=== PATIENT | female | born 1955 | race Caucasian/White ===

== ENCOUNTER 2018-04-20 10:07 | Emergency (ER) | payer BC ==
[~2018-04-20] VITALS: Ht 172.7 cm; Wt 49.1 kg
[2018-04-20 11:39] LABS: HEMOGLOBIN 15.5 g/dl (12.0-16.0); IMMATURE GRANULOCYTES 0.3 % (0.0-5.0); MEAN CELL VOLUME 91.1 fL CALC (80.0-100.0); MEAN CORPUSCULAR HGB 30.7 pG CALC (26.0-32.0); MEAN CORPUSCULAR HGB CONC 33.7 g/L CALC (32.0-36.0); NEUT# 8.55 thou/uL (2.00-7.15); RED BLOOD COUNT 5.05 mill/uL (4.20-5.60)
[2018-04-20] MEDS ORDERED: ONDANSETRON HCL4 MG PO (11:39)
[2018-04-20] MEDS ORDERED: CYCLOBENZAPR5 MG PO (11:40)
[2018-04-20] MEDS ORDERED: ALLERGY NA50 MCG/ACT NAB (11:41)
[2018-04-20] MEDS ORDERED: AZELASTINE0.1 % NAB (11:42)
[2018-04-20] MEDS ORDERED: IPRATROPIUM BR0.03 % NAB (11:43)
[2018-04-20 12:07] LABS: ALBUMIN 4.4 g/dL (3.2-5.0); ALKALINE PHOSPHATASE 147 u/l (38-126); ANION GAP 17 (6-22 (CALC)); BILIRUBIN, TOTAL 0.8 mg/dL (0.0-1.4); BUN 18 mg/dL (8-23); BUN/CREATININE RATIO 26 (12-20 (CALC)); CARBON DIOXIDE 23 mmol/l (22-30); CHLORIDE 103 mmol/l (95-108); CREATININE 0.7 mg/dL (0.5-1.0); GFR > 60 ML/MIN (>=60 (CALC)); GFR FOR AFR.AMER. > 60 ML/MIN (>=60 (CALC)); LIPASE 52 u/l (23-300); POTASSIUM 4.4 mmol/l (3.5-5.1); SGOT/AST 21 u/l (9-36); SODIUM 139 mmol/l (137-146); TOTAL PROTEIN 7.4 g/dL (6.3-8.2)
[2018-04-20] MEDS ORDERED: ONDANSETRON4 MG PO (14:01)
[2018-04-20] MEDS ORDERED: UCERIS9 MG PO (14:01)
[2018-04-20] MEDS ORDERED: MEDDOSEPAK PO (14:01)
[2018-04-20] MEDS ORDERED: BENTYL10 MG PO (14:01)
[2018-04-20] MEDS ORDERED: LISINOPRIL20 MG PO (14:06)
[2018-04-20 14:34] VITALS: BP 177/88
== END 2018-04-20 14:34 | disposition home or self-care (01) | DRG 392 ==
LOC: ED 10:07
PROVIDERS: Emergency Medicine
DX: K52.9 Noninfective gastroenteritis and colitis, unspecified (principal); K50.90 Crohn's disease, unspecified, without complications; I10 Essential (primary) hypertension

== ENCOUNTER 2018-04-21 22:01 | Emergency (ER) | payer BC ==
[~2018-04-21] VITALS: Ht 172.7 cm; Wt 49.0 kg
[~2018-04-21 22:01] MED LIST: ALLERGY NA50 MCG/ACT NAB; AZELASTINE0.1 % NAB; BENTYL10 MG PO; CYCLOBENZAPR5 MG PO; IPRATROPIUM BR0.03 % NAB; LISINOPRIL20 MG PO; MEDDOSEPAK PO; ONDANSETRON HCL4 MG PO; ONDANSETRON4 MG PO; UCERIS9 MG PO
[2018-04-21 22:49] LABS: HEMOGLOBIN 13.6 g/dl (12.0-16.0); IMMATURE GRANULOCYTES 0.5 % (0.0-5.0); MEAN CELL VOLUME 90.7 fL CALC (80.0-100.0); MEAN CORPUSCULAR HGB CONC 34.2 g/L CALC (32.0-36.0); NEUT# 8.9 thou/uL (2.00-7.15); RED BLOOD COUNT 4.39 mill/uL (4.20-5.60); RED CELL DISTRI WIDTH 12.9 % (11.5-15.5)
[2018-04-21 22:50] LABS: HEMATOCRIT 39.8 % (37.0-47.0)
[2018-04-21 23:40] LABS: ALBUMIN 3.8 g/dL (3.2-5.0); ALKALINE PHOSPHATASE 125 u/l (38-126); ANION GAP 12 (6-22 (CALC)); BILIRUBIN, TOTAL 0.5 mg/dL (0.0-1.4); BUN 15 mg/dL (8-23); BUN/CREATININE RATIO 22 (12-20 (CALC)); CARBON DIOXIDE 24 mmol/l (22-30); CHLORIDE 105 mmol/l (95-108); CREATININE 0.7 mg/dL (0.5-1.0); GFR > 60 ML/MIN (>=60 (CALC)); GFR FOR AFR.AMER. > 60 ML/MIN (>=60 (CALC)); POTASSIUM 3.8 mmol/l (3.5-5.1); SGOT/AST 21 u/l (9-36); SODIUM 138 mmol/l (137-146); TOTAL PROTEIN 6.5 g/dL (6.3-8.2)
[2018-04-22] MEDS ORDERED: PREDNISONE50 MG PO (01:34)
[2018-04-22] MEDS ORDERED: PHENERGAN25 MG RE (01:34)
[2018-04-22] MEDS ORDERED: TRAMADOL HCL50 MG PO (01:34)
[2018-04-22 01:43] VITALS: BP 169/84
== END 2018-04-22 01:43 | disposition home or self-care (01) | DRG 387 ==
LOC: ED 22:01
PROVIDERS: Family Medicine
DX: K50.10 Crohn's disease of large intestine without complications (principal); Z91.11 Patient's noncompliance with dietary regimen

== ENCOUNTER 2020-05-07 16:43 | Observation (INO) | payer MEDICARE ==
[~2020-05-07] VITALS: Ht 172.7 cm; Wt 46.3 kg
[~2020-05-07 16:43] MED LIST changes: +PHENERGAN25 MG RE; +PREDNISONE50 MG PO; +TRAMADOL HCL50 MG PO
--- NOTE | 2020-05-07 16:50 | NUR ---
PT TO ROOM # 10 WITH STEADY GAIT FOR BEDSIDE TRIAGE. REFUSED TRIAGE
[2020-05-07 17:33] LABS: HEMOGLOBIN 14.8 g/dl (12.0-16.0); IMMATURE GRANULOCYTES 0.3 % (0.0-5.0); MEAN CELL VOLUME 93.4 fL CALC (80.0-100.0); MEAN CORPUSCULAR HGB 30.7 pG CALC (26.0-32.0); MEAN CORPUSCULAR HGB CONC 32.9 g/dL CAL (32.0-36.0); NEUT# 5.28 thou/uL (2.00-7.15); RED BLOOD COUNT 4.82 mill/uL (4.20-5.60); RED CELL DISTRI WIDTH 12.6 % (11.5-15.5)
[2020-05-07 17:54] LABS: ALBUMIN 4.4 g/dL (3.2-5.0); ALKALINE PHOSPHATASE 122 u/l (38-126); ANION GAP 12 (6-22 (CALC)); BILIRUBIN, TOTAL 0.4 mg/dL (0.0-1.4); BUN 10 mg/dL (8-23); BUN/CREATININE RATIO 12 (12-20 (CALC)); CARBON DIOXIDE 25 mmol/l (22-30); CHLORIDE 105 mmol/l (95-108); CREATININE 0.9 mg/dL (0.5-1.0); GFR > 60 ML/MIN (>=60 (CALC)); GFR FOR AFR.AMER. > 60 ML/MIN (>=60 (CALC)); SGOT/AST 22 u/l (9-36); SODIUM 139 mmol/l (137-146); TOTAL PROTEIN 7.6 g/dL (6.3-8.2)
[2020-05-07 17:56] LABS: ACT PARTIAL THROMBO TIME 26.1 SECONDS (20.0-32.5); PROTHROMBIN TIME 9.9 SECONDS (9.0-12.5)
--- NOTE | 2020-05-07 18:00 | NUR ---
Reassessment of patient completed. No distress noted.
[2020-05-07] MEDS ORDERED: CYCLOBENZAPRINE10 MG PO (18:10)
--- NOTE | 2020-05-07 19:04 | NUR ---
Reassessment of patient completed. No distress noted.
[2020-05-07] MEDS ORDERED: ZOFRAN4 MG/TAB PO (19:31)
[2020-05-07] MEDS ORDERED: HYDROCODONE/ACE1 T12 (19:34)
--- NOTE | 2020-05-07 20:00 | NUR ---
Reassessment of patient completed. No distress noted.
[2020-05-07 20:17] VITALS: BP 167/71
--- NOTE | 2020-05-07 20:28 | NUR ---
REPORT GIVEN TO FLOOR STAFF @ BEDSIDE
[2020-05-08] VITALS: BP 166/67
[2020-05-08 04:00] VITALS: BP 149/85
--- NOTE | 2020-05-08 04:48 | NUR ---
PT IN BED WITH EYES CLOSED. NO S/S OF DISTRESS NOTED. DENIES PAIN AND DISCOMFORT. NO CHEST PAIN NOTED. ABLE TO AMBULATE WITH NO ASSIST NEEDED. CONTINENT OF B/B. CALL LIGHT WITHIN REACH AND BED IN LOWEST POSITION. WILL CONTINUE TO OBSERVE
[2020-05-08 06:08] LABS: HEMATOCRIT 41.4 % (37.0-47.0); HEMOGLOBIN 13.8 g/dl (12.0-16.0); IMMATURE GRANULOCYTES 0.3 % (0.0-5.0); MEAN CELL VOLUME 92.4 fL CALC (80.0-100.0); MEAN CORPUSCULAR HGB 30.8 pG CALC (26.0-32.0); MEAN CORPUSCULAR HGB CONC 33.3 g/dL CAL (32.0-36.0); NEUT# 3.77 thou/uL (2.00-7.15); RED BLOOD COUNT 4.48 mill/uL (4.20-5.60); RED CELL DISTRI WIDTH 12.6 % (11.5-15.5)
[2020-05-08 06:41] LABS: ALBUMIN 3.7 g/dL (3.2-5.0); ALKALINE PHOSPHATASE 106 u/l (38-126); ANION GAP 10 (6-22 (CALC)); BUN 8 mg/dL (8-23); BUN/CREATININE RATIO 11 (12-20 (CALC)); CALCULATED LDLCHOLESTEROL 111 mg/dL (62-129 (CALC)); CARBON DIOXIDE 25 mmol/l (22-30); CHLORIDE 105 mmol/l (95-108); CHOLESTEROL HDL RATIO 3.8 (<4.4 (CALC)); CREATININE 0.7 mg/dL (0.5-1.0); GFR > 60 ML/MIN (>=60 (CALC)); GFR FOR AFR.AMER. > 60 ML/MIN (>=60 (CALC)); HDL CHOLESTEROL 47 mg/dL (>=40); POTASSIUM 3.3 mmol/l (3.5-5.1); SGOT/AST 17 u/l (9-36); SODIUM 137 mmol/l (137-146); TOTAL CHOLESTEROL 178 mg/dl (0-199); TOTAL PROTEIN 6.2 g/dL (6.3-8.2); TOTAL TRIGLYCERIDES 103 mg/dl (30-149); VLDL CHOLESTROL 21 mg/dl (1-41 (CALC))
[2020-05-08 06:44] LABS: BILIRUBIN, TOTAL 0.7 mg/dL (0.0-1.4)
[2020-05-08 07:48] VITALS: BP 179/86
--- NOTE | 2020-05-08 10:22 | NUR ---
DR CAVANAUGH AND Angelica BABB APRN AT BEDSIDE
[2020-05-08] MEDS ORDERED: DIOVAN80 MG PO (10:28)
[2020-05-08 10:45] VITALS: BP 167/85
[2020-05-08] MEDS ORDERED: ASPIRIN 81 LOW81 MG PO (11:38)
--- NOTE | 2020-05-08 12:03 | NUR ---
PT SITTING IN CHAIR. NO DISTRESS OR NEEDS. CALL LIGHT WITHIN REACH.
--- NOTE | 2020-05-08 12:40 | NUR ---
D/C INSTRUCTIONS GIVEN. IV INTACT UPON REMOVAL.
--- NOTE | 2020-05-08 13:09 | NUR ---
Discharge instructions given. Patient verbalizes understanding of same. Discharged in good condition via wheelchair to home accompanied by staff. All belongings sent with pt. pt encouraged to return for worsening symptoms, educated on s/s of stroke and importance to monitor and record BP.
== END 2020-05-08 13:07 | disposition home or self-care (01) ==
LOC: ED 16:43 → ED-I 18:10 → ED 18:53 → MS2 18:54
PROVIDERS: Student in an Organized Health Care Education/Training Program; ADMIT Internal Medicine; ATTEND Internal Medicine
DX: R07.2 Precordial pain (principal); I10 Essential (primary) hypertension; E87.6 Hypokalemia; K50.90 Crohn's disease, unspecified, without complications; Z20.822 Contact with and (suspected) exposure to COVID-19
CPT/HCPCS: J1650